=== PATIENT | female | born 1940 | race Caucasian/White ===

== ENCOUNTER 2021-09-20 05:28 | Emergency (ER) | payer OTHER ==
--- OUTSIDE RECORDS SUMMARY | 2021-09-20 05:32 | XMS REPORT | Continuity of Care Document ---
:1940 Author Organization [facility] t Address [address] [place] [address] Care Team Providers Name Role Phone DEVONTE, A Attending Clinician Unavailable Devonte GARCIA, A Attending Clinician Only, Test Attending Clinician Unavailable Doctor Unassigned, Name Attending Clinician Unavailable Nurse, General Surgery Attending Clinician Unavailable Pob, Lab Main Attending Clinician Unavailable DEVONTE, A Admitting Clinician Unavailable Devonte GARCIA, A Admitting Clinician Payers Payer Name Policy Type Policy Number Effective Date Expiration Date S ourpati [employer] MEDICARE ADV [id number] 2014 00:00:00 Problems Condition Condition Condition Status Onset Resolution Last Treating Co mments Source Name Details Category Date Date Treatment Clinician Date GERD GERD Disease Active Univers (gastroeso (gastroeso 5-18 it y of phageal phageal 00:00: [place] reflux reflux 00 Medical disease) disease) Branch No known No known Disease Unive rs active active ity of problems problems [facility] Allergies, Adverse Reactions, Alerts Allergy Allergy Status Severity Reaction(s) Onset Inactive Treating Comm ents Source Name Type Date Date Clinician NO KNOWN Drug Active Univers ALLERGIE Class ity of S [facility] Social History Social Habit Start Date Stop Date Quantity Comments Source History [facility] [place] Alcohol Std Drinks Medica l Branch History [facility] [place] Alcohol Binge Medical Bra [facility] Exposure to Not sure [facility] SARS-CoV-2 (event) Medica l Branch Sex Assigned At [facility] Branch Alcohol intake 2019-08-19 2019-08-19 [facility] 00:00:00 00:00:00 Medical Branch History SDOH 2019-07-27 2019-07-27 1 [facility] [place] Alcohol Frequency 00:00:00 00:00:00 Medical Branch Smoking Status Start Date Stop Date Source Never smoker [facility] Medical Branch Medications Ordered Filled Start Stop Current Ordering Indication Dosage Frequency Signature Comments Components Source Medication Medication Date Date Medication? Clinician (SIG) Name Name losartan 20200 Yes Take by Unive rs potassium 5-21 mouth. ity of (LOSARTAN 21:37: [place] ORAL) 13 Medical Branch potassium 2019-0 Yes Take by [facility] ers (POTASSIMIN 5-21 mouth. ity of ORAL) 21:37: [place] 13 Medical Branch acetaminoph 2019-0 Yes Take by Un paulette en (TYLENOL 5-21 mouth. ity of ARTHRITIS 21:37: [place] ORAL) 13 Medical Branch ergocalcife 2019-0 Yes Take by Un paulette rol, 5-21 mouth. ity of vitamin D2, 21:37: [place] (VITAMIN D 13 Medical ORAL) Branch B-complex Yes 1{tbl} Take 1 [facility] ers with 5-21 tablet by ity of vitamin C 21:37: mouth [place] (VITAMIN B 13 daily. Medical COMPLEX-C Branch ORAL) lactated 2019-0 Yes 500mL at 75 Univers ringers IV 5-20 mL/hr, 500 ity of infusion 20:30: mL, IV [place] 500 mL 00 Infusion, Medical CONTINUOUS Branch , Starting Sat08/19/19 at 1530, Until Discontinu ed, Routine, PACU water for 2020-0 Yes PRN, Univers irrigation 5-20 Starting ity o f irrigation 19:38: Sat [place] solution 08/19/19 at Medic al 1438, Branch Until Discontinu ed, Routine, Intra-op sodium 2020-0 Yes PRN, Univers chloride 5-20 Starting ity of (NS) 19:38: Sat [place] injection 08/19/19 at Medi luis 1438, Branch Until Discontinu ed, Routine, Intra-op neomycin-po 2020-0 Yes PRN, Univer s lymyxin-dex 5-20 Starting ity of amethasone 19:38: Sat [place] (MAXITROL) 08/19/19 at Med ical 3.5 1438, Branch mg/g-10,000 Until unit/g-0.1 Discontinu % ed, ophthalmic Routine, ointment Intra-op lidocaine-e 2020-0 Yes PRN, Univer s pinephrine 5-20 Starting ity o f (XYLOCAINE 19:37: Wed [place] W/EPINEPHRI 08/19/19 at [facility] [place]) 2 1437, Branch %-1:200,000 Until injection Discontinu ed, Routine, Intra-op Hyaluronida 2020-0 Yes PRN, Univer s se, Human 5-20 Starting ity of Recomb. 19:37: Wed [place] (HYLENEX) 08/19/19 at [facility] luis injection 1437, Branch Until Discontinu ed, Routine, Intra-op gentamicin 2020-0 Yes PRN, Univers injection 5-20 Starting ity of 19:36: Sat [place] 08/19/19 at [facility] 1436, Branch Until Discontinu ed, PEACE, Intra-op EPINEPHrine 2020-0 Yes PRN, Univer s 1:1,000 (1 5-20 Starting ity o f mg/mL) 19:36: Sat [place] (ADRENALIN) 08/19/19 at Vt dical injection 1436, Branch Until Discontinu ed, Routine, Intra-op DUOVISC 2020-0 Yes PRN, Univers (DUOVISC - Starting ity of VISCO 19:35: Sat ELASTIC) 3 08/19/19 at [facility] ical %-4 %(0.5 1435, Branch mL) 1 % Until (0.55 mL) Discontinu intraocular ed, injection Routine, Intra-op dexamethaso 2020-0 Yes PRN, Univer s ne 5-20 Starting ity of (DECADRON 19:35: Sat [place] PHOSPHATE) 08/19/19 at [facility] ical injection 1435, Branch Until Discontinu ed, Routine, Intra-op ceFAZolin 2020-0 Yes PRN, Univers (ANCEF) 5-20 Starting ity of injection 19:35: Sat [place] 08/19/19 at [facility] 1435, Branch Until Discontinu ed, PEACE, Intra-op carbachoL 2020-0 Yes PRN, Univers (MIOSTAT) 5-20 Starting ity of 0.01 % 19:35: Wed [place] intraocular 08/19/19 at Vt dical injection 1435, Branch Until Discontinu ed, Routine, Intra-op bupivacaine 2020-0 Yes PRN, Univer s (preserv 5-20 Starting ity of free) 19:34: Wed [place] (SENSORCAIN 00 20 at Vt dical E MPF) 0.75 1434, Branch % (7.5 Until mg/mL) Discontinu injection ed, Routine, Intra-op balanced 2020-0 Yes PRN, Univers salt irrig 5-20 Starting ity o f soln comb1 19:34: Wed [place] (BSS PLUS) 00 08/19/19 at [facility] ica ophthalmic 1434, Branch solution Until 500 mL bag Discontinu ed, Routine, Intra-op mydriatic 2020-0 2020- No .5mL 0.5 mL, Univ ers #5 5-20 05-20 Left Eye, ity of ophthalmic 18:15: 18:51 ONCE, 1 Bob as solution 00 :00 dose, Wed Medica l 0.5 mL 08/19/19 at Branch syringe 1315, Routine, DSU Pre-op lactated 2019-0 2020- No 500mL [facility] 20 [facility] 5-20 05-20 mL/hr, 500 it y of infusion 18:15: 18:21 mL, IV [place] 500 mL 00 :00 Infusion, Medical ONCE, 1 Branch dose, 08/19/19 at 1315, Routine, DSU Pre-op acetaminoph 2019-0 Yes Take by Un paulette en (TYLENOL 4-29 mouth. ity of ARTHRITIS 20:44: [place] ORAL) 29 Medical Branch ergocalcife 2019-0 Yes Take by Un paulette rol, 4-29 mouth. ity of vitamin D2, 20:44: [place] (VITAMIN D 29 Medical ORAL) Branch B-complex 2020-0 Yes 1{tbl} Take 1 Univ ers with 4-29 tablet by ity of vitamin C 20:44: mouth [place] (VITAMIN B 29 daily. Medical COMPLEX-C Branch ORAL) losartan 2020-0 Yes Take by [facility] rs potassium 4-29 mouth. ity of (LOSARTAN 20:44: [place] ORAL) 29 Medical Branch potassium 2020-0 Yes Take by [facility] ers (POTASSIMIN 4-29 mouth. ity of ORAL) 20:44: [place] 29 Medical Branch acetaminoph 2020-0 Yes Take by Un paulette en (TYLENOL 4-29 mouth. ity of ARTHRITIS 20:44: [place] ORAL) 29 Medical Branch ergocalcife 2020-0 Yes Take by Un paulette rol, 4-29 mouth. ity of vitamin D2, 20:44: [place] (VITAMIN D 29 Medical ORAL) Branch B-complex 2020-0 Yes 1{tbl} Take 1 Univ ers with 4-29 tablet by ity of vitamin C 20:44: mouth [place] (VITAMIN B 29 daily. Medical COMPLEX-C Branch ORAL) losartan 2019-0 Yes Take by Unive rs potassium 4-29 mouth. ity of (LOSARTAN 20:44: [place] ORAL) 29 Medical Branch potassium 2020-0 Yes Take by Univ ers (POTASSIMIN 4-29 mouth. ity of ORAL) 20:44: [place] 29 Medical Branch acetaminoph 2019-0 Yes Take by Un paulette en (TYLENOL 4-29 mouth. ity of ARTHRITIS 20:44: [place] ORAL) 29 Medical Branch ergocalcife 2019-0 Yes Take by Un paulette rol, 4-29 mouth. ity of vitamin D2, 20:44: [place] (VITAMIN D 29 Medical ORAL) Branch B-complex 2019-0 Yes 1{tbl} Take 1 Univ ers with 4-29 tablet by ity of vitamin C 20:44: mouth [place] (VITAMIN B 29 daily. Medical COMPLEX-C Branch ORAL) losartan 2019-0 Yes Take by Unive rs potassium 4-29 mouth. ity of (LOSARTAN 20:44: [place] ORAL) 29 Medical Branch potassium 2019-0 Yes Take by Univ ers (POTASSIMIN 4-29 mouth. ity of ORAL) 20:44: [place] 29 Medical Branch acetaminoph 2020-0 Yes Take by Un paulette en (TYLENOL 4-29 mouth. ity of ARTHRITIS 20:44: [place] ORAL) 29 Medical Branch ergocalcife 2020-0 Yes Take by Un paulette rol, 4-29 mouth. ity of vitamin D2, 20:44: [place] (VITAMIN D 29 Medical ORAL) Branch B-complex 2020-0 Yes 1{tbl} Take 1 Univ ers with 4-29 tablet by ity of vitamin C 20:44: mouth [place] (VITAMIN B 29 daily. Medical COMPLEX-C Branch ORAL) losartan 2020-0 Yes Take by Unive rs potassium 4-29 mouth. ity of (LOSARTAN 20:44: [place] ORAL) 29 Medical Branch potassium 2020-0 Yes Take by Univ ers (POTASSIMIN 4-29 mouth. ity of ORAL) 20:44: Medical Branch lactated 2020-0 Yes 1000mL at 75 [facility] ringers IV 07-28 mL/hr, ity of infusion 20:00: 1,000 mL, [place] 1[place]000 mL 00 IV Medical Infusion, Branch CONTINUOUS , Starting Sat07/29/19 at 1500, Until Discontinu ed, Routine, PACU FENTanyl PF 2020-0 Yes 25ug 25 mcg, Uni vers (SUBLIMAZE 07-28 Slow IV ity of (PF)) 19:48: Push, [place] injection 58 Q5MIN PRN, Medi luis 25 mcg 4 doses, Branch Starting Sat07/29/19 at 1448, Until Discontinu ed, Routine, Pain (scale 7-10), PACU ondansetron 2020-0 Yes 4mg 4 mg, Slow Univers (ZOFRAN 07-28 IV Push, ity of (PF)) 19:48: PRN, 1 [place] injection 4 58 dose, Medical mg Starting Branch Sat07/29/19 at 1448, Until Discontinu ed, Routine, Nausea and Vomiting (N/V), PACU water for 2020-0 Yes PRN, Univers irrigation 07-28 Starting ity o f irrigation 19:20: Sat [place] solution 07/29/19 at Medic al 1420, Branch Until Discontinu ed, Routine, Intra-op sodium 2020-0 Yes PRN, Univers chloride 07-28 Starting ity of (NS) 19:20: Sat [place] injection 07/29/19 at Medi luis 1420, Branch Until Discontinu ed, Routine, Intra-op neomycin-po 2020-0 Yes PRN, [facility] lymyxin-dex 07-28 Starting ity of amethasone 19:20: Sat [place] (MAXITROL) 07/29/19 at Med ical 3.5 1420, [place] mg/g-10,000 Until unit/g-0.1 Discontinu % ed, ophthalmic Routine, ointment Intra-op lidocaine-e 2020-0 Yes PRN, [facility] pinephrine 07-28 Starting ity o f (XYLOCAINE 19:20: Sat W/EPINEPHRI 00 07/29/19 at Vt dical NE) 2 1420, Branch %-1:200,000 Until injection Discontinu ed, Routine, Intra-op Hyaluronida 2020-0 Yes PRN, Univer s se, Human 07-28 Starting ity of Recomb. 19:19: Sat (HYLENEX) 00 07/29/19 at Medi luis injection 1419, Branch Until Discontinu ed, Routine, Intra-op gentamicin 2020-0 Yes PRN, Univers injection 07-28 Starting ity of 19:19: Sat07/29/19 at Medical 1419, Branch Until Discontinu ed, PEACE, Intra-op EPINEPHrine 2020-0 Yes PRN, Univer s 1:1,000 (1 07-28 Starting ity o f mg/mL) 19:19: Sat (ADRENALIN) 00 07/29/19 at Vt dical injection 1419, Branch Until Discontinu ed, Routine, Intra-op DUOVISC 2020-0 Yes PRN, Univers (DUOVISC 07-28 Starting ity of VISCO 19:18: Sat ELASTIC) 3 07/29/19 at [facility] ical %-4 %(0.5 1418, Branch mL) 1 % Until (0.55 mL) Discontinu intraocular ed, injection Routine, Intra-op dexamethaso 2020-0 Yes PRN, Univer s ne 07-28 Starting ity of (DECADRON 19:18: Sat PHOSPHATE) 07/29/19 at [facility] ical injection 1418, Branch Until Discontinu ed, Routine, Intra-op ceFAZolin 2019-0 Yes PRN, Univers (ANCEF) 07-28 Starting ity of injection 19:18: Sat07/29/19 at [facility] 1418, Branch Until Discontinu ed, PEACE, Intra-op carbachoL 2020-0 Yes PRN, Univers (MIOSTAT) 07-28 Starting ity of 0.01 % 19:18: Sat intraocular 00 07/29/19 at Vt dical injection 1418, Branch Until Discontinu ed, Routine, Intra-op bupivacaine 2020-0 Yes PRN, Univer s (preserv 07-28 Starting ity of free) 19:17: Sat (SENSORCAIN 00 07/29/19 at Vt dical E MPF) 0.75 1417, Branch % (7.5 Until mg/mL) Discontinu injection ed, Routine, Intra-op balanced 2020-0 Yes PRN, Univers salt irrig 07-28 Starting ity o f soln comb1 19:13: Wed [place] (BSS PLUS) 00 07/29/19 at [facility] ical ophthalmic 1413, Branch solution Until 500 mL bag Discontinu ed, Routine, Intra-op mydriatic 2019-0 2020- No .5mL 0.5 mL, Univ ers #5 07-28 Right Eye, ity of ophthalmic 16:15: 17:20 ONCE, 1 Bob as solution 00 :00 dose, Sat Medica l 0.5 mL 07/29/19 at Branch syringe 1115, Routine, DSU Pre-op lactated 2020-0 2020- No 1000mL at 20 [facility] rs ringers IV 07-28 mL/hr, ity of infusion 16:15: 16:44 1,000 mL, Bob as 1,000 mL 00 :00 IV Medical Infusion, Branch ONCE, 1 dose, Sat07/29/19 at 1115, Routine, DSU Pre-op losartan 2019-0 Yes Take by [facility] rs potassium 4-27 mouth. ity of (LOSARTAN 15:26: [place] ORAL) 23 Medical Branch potassium 2020-0 Yes Take by Univ ers (POTASSIMIN 4-27 mouth. ity of ORAL) 15:26: Medical Branch acetaminoph 0 Yes Take by Un paulette en (TYLENOL -27 mouth. ity of ARTHRITIS 15:26: [place] ORAL) 23 Medical Branch ergocalcife 2019-0 Yes Take by Un paulette rol, - mouth. ity of vitamin D2, 15:26: [place] (VITAMIN D 23 Medical ORAL) Branch B-complex 0 Yes 1{tbl} Take 1 Univ ers with 4-27 tablet by ity of vitamin C 15:26: mouth [place] (VITAMIN B 23 daily. Medical COMPLEX-C Branch ORAL) losartan 2020-0 Yes Take by Unive rs potassium 4-27 mouth. ity of (LOSARTAN 15:26: [place] ORAL) 23 Medical Branch potassium 2020-0 Yes Take by Univ ers (POTASSIMIN 4-27 mouth. ity of ORAL) 15:26: [place] 23 Medical Branch acetaminoph 2020-0 Yes Take by Un paulette en (TYLENOL 4-27 mouth. ity of ARTHRITIS 15:26: [place] ORAL) 23 Medical Branch ergocalcife 2020-0 Yes Take by Un paulette rol, 4-27 mouth. ity of vitamin D2, 15:26: [place] (VITAMIN D 23 Medical ORAL) Branch B-complex Yes 1{tbl} Take 1 Univ ers with 4-27 tablet by ity of vitamin C 15:26: mouth [place] (VITAMIN B 23 daily. Medical COMPLEX-C Branch ORAL) losartan Yes Take by Unive rs potassium 4-27 mouth. ity of (LOSARTAN 15:26: [place] ORAL) 23 Medical Branch potassium Yes Take by Univ ers (POTASSIMIN 4-27 mouth. ity of ORAL) 15:26: [place] 23 Medical Branch acetaminoph Yes Take by Un paulette en (TYLENOL 4-27 mouth. ity of ARTHRITIS 15:26: [place] ORAL) 23 Medical Branch ergocalcife Yes Take by Un paulette rol, 4-27 mouth. ity of vitamin D2, 15:26: [place] (VITAMIN D 23 Medical ORAL) Branch B-complex Yes 1{tbl} Take 1 Univ ers with 4-27 tablet by ity of vitamin C 15:26: mouth [place] (VITAMIN B 23 daily. Medical COMPLEX-C Branch ORAL) losartan Yes Take by Unive rs potassium 2-23 mouth. ity of (LOSARTAN 17:13: [place] ORAL) 11 Medical Branch potassium Yes Take by Univ ers (POTASSIMIN 2-23 mouth. ity of ORAL) 17:13: [place] 11 Medical Branch acetaminoph Yes Take by Un paulette en (TYLENOL 2-23 mouth. ity of ARTHRITIS 17:13: [place] ORAL) 11 Medical Branch ergocalcife Yes Take by Un paulette rol, 2-23 mouth. ity of vitamin D2, 17:13: [place] (VITAMIN D 11 Medical ORAL) Branch terbinafine Yes [id number] Apply to Univers HCl 1 % 2-23 area(s) 2 ity of cream 00:00: (two) [place] 00 times Medical daily. Branch terbinafine Yes [id number] Apply to Univers HCl 1 % 2-23 area(s) 2 ity of cream 00:00: (two) [place] 00 times Medical daily. Branch triamcinolo Yes [id number] Apply to Univers ne 2-23 area(s) 3 ity of acetonide 00:00: (three) [place] 0.1 % 00 times Medical ointment daily. Branch hydrOXYzine 2019-0 Yes [id number] 1-3 tabs Univers 10 mg 2-23 Every ity of tablet 00:00: 3-6hrs as [place] 00 needed for Medical nausea, Branch abdominal cramping, or itching. triamcinolo 2019-0 Yes [id number] Apply to Univers ne 2-23 area(s) 3 ity of acetonide 00:00: (three) [place] 0.1 % 00 times Medical ointment daily. Branch terbinafine 2019-0 Yes [id number] Apply to Univers HCl 1 % 2-23 area(s) 2 ity of cream 00:00: (two) [place] 00 times Medical daily. Branch triamcinolo 2019-0 Yes [id number] Apply to Univers ne 2-23 area(s) 3 ity of acetonide 00:00: (three) [place] 0.1 % 00 times Medical ointment daily. Branch hydrOXYzine 2019-0 Yes [id number] 1-3 tabs Univers 10 mg 2-23 Every ity of tablet 00:00: 3-6hrs as [place] 00 needed for Medical nausea, Branch abdominal cramping, or itching. hydrOXYzine 2019-0 Yes [id number] 1-3 tabs Univers 10 mg 2-23 Every ity of tablet 00:00: 3-6hrs as [place] 00 needed for Medical nausea, Branch abdominal cramping, or itching. terbinafine 2019-0 Yes [id number] Apply to Univers HCl 1 % 2-23 area(s) 2 ity of cream 00:00: (two) [place] 00 times Medical daily. Branch triamcinolo 2019-0 Yes [id number] Apply to Univers ne 2-23 area(s) 3 ity of acetonide 00:00: (three) [place] 0.1 % 00 times Medical ointment daily. Branch hydrOXYzine 2019-0 Yes [id number] 1-3 tabs Univers 10 mg 2-23 Every ity of tablet 00:00: 3-6hrs as [place] 00 needed for Medical nausea, Branch abdominal cramping, or itching. terbinafine 2019-0 Yes [id number] Apply to Univers HCl 1 % 2-23 area(s) 2 ity of cream 00:00: (two) [place] 00 times Medical daily. Branch triamcinolo 2019-0 Yes [id number] Apply to Univers ne 2-23 area(s) 3 ity of acetonide 00:00: (three) [place] 0.1 % 00 times Medical ointment daily. Branch hydrOXYzine 2019-0 Yes [id number] 1-3 tabs Univers 10 mg 2-23 Every ity of tablet 00:00: 3-6hrs as [place] 00 needed for Medical nausea, Branch abdominal cramping, or itching. terbinafine 2019-0 Yes [id number] Apply to Univers HCl 1 % 2-23 area(s) 2 ity of cream 00:00: (two) [place] 00 times Medical daily. Branch triamcinolo 2019-0 Yes [id number] Apply to Univers ne 2-23 area(s) 3 ity of acetonide 00:00: (three) [place] 0.1 % 00 times Medical ointment daily. Branch hydrOXYzine 2019-0 Yes [id number] 1-3 tabs Univers 10 mg 2-23 Every ity of tablet 00:00: 3-6hrs as [place] 00 needed for Medical nausea, Branch abdominal cramping, or itching. terbinafine 2019-0 Yes [id number] Apply to Univers HCl 1 % 2-23 area(s) 2 ity of cream 00:00: (two) [place] 00 times Medical daily. Branch triamcinolo 2019-0 Yes [id number] Apply to Univers ne 2-23 area(s) 3 ity of acetonide 00:00: (three) [place] 0.1 % 00 times Medical ointment daily. Branch hydrOXYzine 2019-0 Yes [id number] 1-3 tabs Univers 10 mg 2-23 Every ity of tablet 00:00: 3-6hrs as [place] 00 needed for Medical nausea, Branch abdominal cramping, or itching. terbinafine 2019-0 Yes [id number] Apply to Univers HCl 1 % 2-23 area(s) 2 ity of cream 00:00: (two) [place] 00 times Medical daily. Branch triamcinolo 2019-0 Yes [id number] Apply to Univers ne 2-23 area(s) 3 ity of acetonide 00:00: (three) [place] 0.1 % 00 times Medical ointment daily. Branch hydrOXYzine 2018- Yes [id number] 1-3 tabs Univers 10 mg 2-23 Every ity of tablet 00:00: 3-6hrs as [place] 00 needed for Medical nausea, Branch abdominal cramping, or itching. terbinafine 2018- Yes [id number] Apply to Univers HCl 1 % 2-23 area(s) 2 ity of cream 00:00: (two) [place] 00 times Medical daily. Branch triamcinolo 2018- Yes [id number] Apply to Univers ne 2-23 area(s) 3 ity of acetonide 00:00: (three) [place] 0.1 % 00 times Medical ointment daily. Branch hydrOXYzine Yes [id number] 1-3 tabs Univers 10 mg 2-23 Every ity of tablet 00:00: 3-6hrs as [place] 00 needed for Medical nausea, Branch abdominal cramping, or itching. Vital Signs Vital Name Observation Time Observation Value Comments Source Systolic blood 2019-08-19 20:36:00 168 mm[Hg] Univer sity [facility] Diastolic blood 2019-08-19 20:36:00 [facility]-19 20:36:00 66 /min [facility] Respiratory rate 2019-08-19 20:36:00 16 /min [facility] Oxygen saturation in 2019-08-19 20:36:00 97 /min [facility] Arterial blood by [facility] Pulse oximetry [place] Body temperature 2019-08-19 20:20:00 36.56 [facility] Body height 2019-08-17 16:00:00 172.7 cm [facility] Body weight 2019-08-17 16:00:00 77.1 kg [facility] BMI 2019-08-17 16:00:00 25.85 kg/m2 [facility] Systolic blood 2019-08-19 20:36:00 168 mm[Hg] Univer sity [facility] Diastolic blood 2019-08-19 20:36:00 71 [facility]Hg[facility] 2019-08-19 20:36:00 66 /min [facility] [place] [facility] Respiratory rate 2019-08-19 20:36:00 16 /min [facility] [place] [facility] Oxygen saturation in 2019-08-19 20:36:00 97 /min [facility] of Arterial blood by [facility] Pulse oximetry Branch Body temperature 2019-08-19 20:20:00 36.56 [facility] [place] [facility] Body height 2019-08-17 16:00:00 172.7 cm [facility] [place] [facility] Body weight 2019-08-17 16:00:00 77.1 kg [facility] [place] [facility] BMI 2019-08-17 16:00:00 25.85 kg/m2 [facility] [place] [facility] Systolic blood 2019-07-29 20:15:00 150 mm[Hg] Univer sity of pressure [place] [facility] Diastolic blood 2019-07-29 20:15:00 55 mm[Hg] Unive rsity of pressure [place] [facility] Heart rate 2019-07-29 20:15:00 54 /min [facility] [place] [facility] Oxygen saturation in 2019-07-29 20:15:00 100 /min University of Arterial blood by [facility] Pulse oximetry Branch Body temperature 2019-07-29 19:30:00 36.22 [facility] [place] [facility] Respiratory rate 2019-07-29 19:30:00 22 /min [facility] [place] [facility] Body height 2019-07-27 15:20:00 172.7 cm [facility] [place] [facility] Body weight 2019-07-27 15:20:00 77.111 kg [facility] [place] [facility] BMI 2019-07-27 15:20:00 25.85 kg/m2 [facility] [place] [facility] Systolic blood 2019-07-29 20:15:00 150 mm[Hg] Univer sity of pressure [place] [facility] Diastolic blood 2019-07-29 20:15:00 55 mm[Hg] Unive rsity of pressure [place] [facility] Heart rate 2019-07-29 20:15:00 54 /min [facility] [place] [facility] Oxygen saturation in 2019-07-29 20:15:00 100 /min University of Arterial blood by [facility] Pulse oximetry Branch Body temperature 2019-07-29 19:30:00 36.22 [facility] [place] [facility] Respiratory rate 2019-07-29 19:30:00 22 /min [facility] Body height 2019-07-27 15:20:00 172.7 cm [facility] Body weight 2019-07-27 15:20:00 77.111 kg [facility] BMI 2019-07-27 15:20:00 25.85 kg/m2 [facility] Body temperature 2019-07-28 14:35:00 36.67 [facility] Body temperature 2019-07-28 14:35:00 36.67 [facility] Procedures Procedure Date / Time Performing Source Performed Clinician PHACOEMULSIFICATION OF 2019-08-19 Rey Matos [facility] CATARACT WITH INTRAOCULAR 19:38:00 Medica l Branch LENS IMPLANT ASSIGNMENT OF BENEFITS 2019-08-18 Doctor Unassigned, [facility] 15:01:29 [facility] DAY SURGERY - ADC 2019-07-29 Doctor Unassigned, [facility] 05:01:00 [facility] NO SHOW OR MISSED APPOINTMENT 2019-06-03 Doctor Unassigned, [facility] POLICY ACKNOWLEDGEMENT 22:38:14 [facility] PATIENT FINANCIAL POLICY 2019-06-03 Doctor Unassigned, [facility] 22:37:20 [facility] NOTICE OF BILLING PRACTICES 2019-06-03 Doctor Unassigned, [facility] FOR MEDICARE PATIENTS 22:36:51 [facility] NOTICE OF PRIVACY PRACTICES 2019-06-03 Doctor Unassigned, [facility] 22:36:19 [facility] CONSENT/REFUSAL FOR DIAGNOSIS 2019-06-03 Doctor Unassigned, [facility] AND TREATMENT 22:35:34 [facility] ASSIGNMENT OF BENEFITS 2019-06-03 Doctor Unassigned, [facility] 22:35:09 [facility] CONSENT/REFUSAL FOR DIAGNOSIS 2019-06-03 Doctor Unassigned, [facility] AND TREATMENT 22:34:42 [facility] ASSIGNMENT OF BENEFITS 2019-06-03 Doctor Unassigned, [facility] 22:34:02 [facility] PHYSICIAN ORDERS 2019-06-03 Doctor Unassigned, [facility] 06:01:00 [facility] Encounters Start End Encounter Admission Attending Care Care Encounter Source Date/Time Date/Time Type Type Clinicians Facility Department ID 2021-01-26 Outpatient DEVONTE [facility] [id number] Univers 21:11:38 RE[facility] itdougie [facility] 2021-01-26 Outpatient [facility] [id number] Univers 12:34:13 [facility] 2020-06-04 Outpatient [facility] [id number] Univers 11:30:00 11:30:00 ity [facility] 2020-05-07 2020-05-07 Outpatient [facility] [id number] Univers 11:40:00 11:40:00 ity [facility] 2019-08-19 2019-08-19 [facility] [id number] 12:56:00 15:58:00 Encounter Rey Blevins [place] 350.1.13.10 [place] 4.2.7.2.686 Surgical [phone] [place] [address] 2019-08-19 2019-08-19 [facility] [id number] Univers 12:56:00 15:58:00 Encounter Rey Blevins [place] 350.1.13.10 [place] [phone] Med ical [address] 2019-08-18 2019-08-18 Laboratory Only, [facility] 1.2.840.114 [id number] 09:17:57 09:32:57 Only Test [place] 350.1.13.10 [place] 4.2.7.2.686 Professio [id number] [address] 2019-08-18 2019-08-18 Laboratory Only, [facility] Test [facility] 1.2.840. [id number] Univers 09:17:57 09:32:57 Only Rey Matos Jami 350.1.13.1 0 [place] [phone] Vt dical [address] 2019-08-18 2019-08-18 Outpatient R [facility] [id number] Univers 09:30:00 09:30:00 [id number] [facility] 2019-08-18 2019-08-18 Outpatient R [facility] [id number] Univers 09:30:00 09:30:00 REY itdougie [facility] 2019-08-18 2019-08-18 Orders Doctor BELL 1.2.840.114 [id number] 00:00:00 00:00:00 Only Unassigned, TAIWO 350.1.13.10 [facility] 4.2.7.2.686 [id number] 009 2019-08-18 2019-08-18 Orders Doctor RAY 1.2.840.114 [id number] Univers 00:00:00 00:00:00 Only Unassigned, TAIWO 350.1.13.10 ity of [facility] 4.2.7.2.686 Bob as [phone] [address] 2019-07-29 2019-07-29 [facility] [id number] 11:12:00 15:30:00 Encounter Rey Farrell 350.1.13.10 [place] 4.2.7.2.686 Surgical [id number] [place] [address] 2019-07-29 2019-07-29 [facility] [id number] [facility] 11:12:00 15:30:00 Encounter Rey Blevins Jami 350.1.13.10 [place] [phone] [address] 2019-07-29 2019-07-29 Orders Doctor BELL 1.2.840.114 [id number] 00:00:00 00:00:00 Only Unassigned, TAIWO 350.1.13.10 [facility] 4.2.7.2.[id number] [facility] 2019-07-29 2019-07-29 Orders Doctor BELL 1.2.840.114 [id number] Univers 00:00:00 00:00:00 Only Unassigned, TAIWO 350.1.13.10 [facility]y of [facility] 4.2.7.2.686 Bob as [phone] [address] 2019-07-28 2019-07-28 Outpatient R [facility] [id number] Univers 09:30:00 09:30:00 [id number] ity [facility] 2019-07-28 2019-07-28 Outpatient R [facility] [id number] Univers 09:30:00 09:30:00 REY ity [facility] 2019-07-28 2019-07-28 Nurse Nurse, [facility] 1.2.840.114 [id number] 09:08:07 09:22:57 Visit General Jami 350.1.13.10 Surgery [place] 4.2.7.2.686 Professio [phone] [address] 2019-07-28 2019-07-28 Nurse Nurse, [facility] General Surgery [facility] 1.2.840.114 [id number] [facility] 09:08:07 09:22:57 Visit Rey Matos 350.1.13.1 0 [place] [phone] Vt dical nal [address] [facility] 2019-07-28 2019-07-28 Telephone RAY Matos 1.2.840.114 [id number] 00:00:00 00:00:00 Rey MARAVILLA 350.1.13.10 HOSPITAL 4.2.7.2.686 [id number] [facility] 2019-07-28 2019-07-28 Telephone RAY Matos 1.2.840.114 [id number] [facility] 00:00:00 00:00:00 Rey MARAVILLA 350.1.13.10 ity of HOSPITAL 4.2.7.2.686 Bob as [phone] [address] 2019-06-03 2019-06-03 [employer] Supervisor Todd, [facility] Lab Main [facility] 1.2.8 [id number] Univers 16:40:09 16:55:09 Visit Rey Matos 350.1.13.1 0 [place] [phone] Vt dical nal 353 [facility] 2019-06-03 2019-06-03 Outpatient [facility] [id number] Univers 16:30:00 16:30:00 ity [facility] 2019-06-03 2019-06-03 Outpatient Valerie MATOS [facility] [id number] Univers 16:30:00 16:30:00 REY muniz [facility] Results This patient has no known results.
[2021-09-20] MEDS ORDERED: IBUPROFEN 200 MG TAB PO ONE (06:31)
[2021-09-20] MEDS ORDERED: IBUPROFEN 400 MG TAB ONE (06:31)
[2021-09-20 06:33] LABS: Absolute Lymphocytes (CBC) 1.6 K/uL (0.7-4.9); Hematocrit 39.8 % (36.0-45.0); MPV 7.6 fL (7.6-11.3); RBC Red Blood Cell Count 4.54 M/uL (3.86-4.86)
[2021-09-20 07:39] LABS: Albumin 3.2 g/dL (3.4-5.0); Bilirubin Total 0.7 mg/dL (0.2-1.0); Potassium 3.8 mmol/L (3.5-5.1); Protein, Total 6.9 g/dL (6.4-8.2)
[2021-09-20] MEDS ORDERED: NA CHLORIDE 0.9% 500 ML ONE (08:15)
--- NOTE | 2021-09-20 08:41 | EDPHYS ---
Physician Documentation [facility] Name: Mary Ellen Flores Age: 81 yrs Sex: Female : 1940 Arrival Date: 09/20/2021 Time: 05:30 Bed 17 Private MD: Ayad Merino R ED Physician Garrett Callahan HPI: 09/20 06:44 This 81 yrs old Female presents to ER via Ambulatory with complaints of Sore Throat, kdr Diarrhea, Fever. 06:45 Patient complains of a sore throat with nausea, diarrhea for the last 3 days. She kdr states that she went to [place] and was interacting with people at that time. The following day on Saturday, she began to feel ill and is progressively gotten worse since then. Onset: The symptoms/episode began/occurred gradually, Since Saturday. Severity of symptoms: At their worst the symptoms were mild just prior to arrival, in the emergency department the symptoms are unchanged. The patient has not experienced similar symptoms in the past. The patient has not recently seen a physician. Historical: - Allergies: 05:45 No Known Allergies; as6 - PMHx: 05:45 Hypertensive disorder; as6 - PSHx: 05:45 None; as6 - Immunization history:: Client reports receiving the 1st dose of the Covid vaccine, moderna. - Social history:: Smoking status: Patient denies any tobacco usage or history of. ROS: 06:45 Constitutional: Negative for weight loss, she has had subjective fever and chills Eyes: kdr Negative for injury, pain, redness, and discharge, Neck: Negative for injury, pain, and swelling, Cardiovascular: Negative for chest pain, palpitations, and edema, Respiratory: Negative for shortness of breath, cough, wheezing, and pleuritic chest pain, Back: Negative for injury and pain, : Negative for injury, bleeding, discharge, and swelling, MS/Extremity: Negative for injury and deformity, Skin: Negative for injury, rash, and discoloration, Neuro: Negative for headache, weakness, numbness, tingling, and seizure activity. Psych: Negative for depression, anxiety, suicide ideation, homicidal ideation, and hallucinations, Allergy/Immunology: Negative for hives, rash, and allergies, Endocrine: Negative for neck swelling, polydipsia, polyuria, polyphagia, and marked weight changes, Hematologic/Lymphatic: Negative for swollen nodes, abnormal bleeding, and unusual bruising. 06:45 ENT: Positive for sore throat, Negative for ear pain, rhinorrhea, sinus congestion. 06:45 Abdomen/GI: Positive for nausea, diarrhea, Negative for vomiting. Exam: 06:45 Constitutional: This is a well developed, well nourished patient who is awake, alert, kdr and in no acute distress. Head/Face: Normocephalic, atraumatic. Eyes: Pupils equal round and reactive to light, extra-ocular motions intact. Lids and lashes normal. Conjunctiva and sclera are non-icteric and not injected. Cornea within normal limits. Periorbital areas with no swelling, redness, or edema. Neck: Trachea midline, no thyromegaly or masses palpated, and no cervical lymphadenopathy. Supple, full range of motion without nuchal rigidity, or vertebral point tenderness. No Meningismus. Chest/axilla: Normal chest wall appearance and motion. Nontender with no deformity. No lesions are appreciated. 06:45 ENT: Mouth: Lips: normal, Oral mucosa: normal, drooling, is not appreciated, Posterior pharynx: Uvula: normal, midline, swelling, that is mild, erythema, that is mild, exudate, is not appreciated, peritonsillar mass, is not appreciated, pooling of secretions, is not appreciated. Vital Signs: 05:44 BP 157 / 76; Pulse 80; Resp 16 S; Temp 97.9(O); Pulse Ox 100% on R/A; Weight 77.11 kg as6 (R); Height 5 ft. 8 in. (172.72 cm) (R); Pain 0/10; 07:15 BP 142 / 77; Pulse 78; Resp 16; Pulse Ox 100% ; Pain 0/10; jh6 09:49 BP 143 / 74; Pulse 74; Resp 18; Temp 98.0(O); Pulse Ox 100% ; Pain 0/10; jh6 05:44 Body Mass Index 25.85 (77.11 kg, 172.72 cm) as6 MDM: 06:45 Data reviewed: vital signs, nurses notes, lab test result(s), radiologic studies. kdr Counseling: I had a detailed discussion with the patient and/or guardian regarding: the historical points, exam findings, and any diagnostic results supporting the discharge/admit diagnosis, lab results, radiology results. 07:25 Patient medically screened. rn 08:40 Differential Diagnosis flu, covid, viral syndrome. Response to treatment: the patient's rn symptoms have mildly improved after treatment, and as a result, I will discharge patient. Special discussion: I discussed with the patient/guardian in detail that at this point there is no indication for admission to the hospital. It is understood, however, that if the symptoms persist or worsen the patient needs to return immediately for re-evaluation. Based on the history and exam findings, there is no indication for further emergent testing or inpatient evaluation. I discussed with the patient/guardian the need to see the primary care provider for further evaluation of the symptoms. 09/20 05:59 Order name: CBC with Diff; Complete Time: 07:42 bb 09/20 05:59 Order name: CMP; Complete Time: 07:42 bb 09/20 05:59 Order name: Lipase; Complete Time: 07:42 bb 09/20 06:06 Order name: Strep; Complete Time: 07:42 bb 09/20 06:35 Order name: SARS-COV-2 RT PCR; Complete Time: 07:42 EDMS 09/20 05:59 Order name: IV Saline Lock; Complete Time: 06:23 bb 09/20 05:59 Order name: Labs collected and sent; Complete Time: 06:23 bb 09/20 06:54 Order name: Labs - recollect needed: chemistry needed; Complete Time: 07:14 mw2 09/20 06:57 Order name: Throat Culture EDMS Administered Medications: 06:30 Drug: Ibuprofen 600 mg Route: PO; ke1 08:12 Drug: NS 0.9% 500 ml Route: IV; Rate: bolus; Site: left antecubital; jh6 Disposition Summary: 09/20/21 08:41 Discharge Ordered Location: Home rn Problem: new rn Symptoms: have improved rn Condition: Stable rn Diagnosis - SARS-associated coronavirus as the cause of diseases classified elsewhere rn Followup: rn - With: Ayad Merino MD - When: 2 - 3 days - Reason: Recheck today's complaints, Re-evaluation by your physician Discharge Instructions: - Discharge Summary Sheet rn - COVID-19 rn - 10 Things You Can Do to Manage Your COVID-19 Symptoms at Home - CDC rn - Viral Illness, Adult rn Forms: - Medication Reconciliation Form rn - Thank You Letter rn - Antibiotic external grinder tool - Prescription Opioid Use rn Prescriptions: - PAXLOVID - take 1 tablet by ORAL route 2 times per day for 5 days; 10 tablet; Refills: 0, rn Product Selection Permitted Signatures: Dispatcher [employer] EDMS Maximilian Vizcarra MD MD kdr Ballard, Brenda, RN RN Garrett Hutchinson MD MD rn [place], MyKena 2 Raghav Barone RN RN as6 Jen Freitas RN RN jh6 Comfort Cobb, RN RN ke1 Corrections: (The following items were deleted from the chart) 06:35 06:00 COVID-19/FLU A+B+MOL.LAB.BRZ ordered. EDNM EDNM
--- NOTE | 2021-09-20 08:41 | ER ---
Nurse's Notes [facility] Name: Mary Ellen Flores Age: 81 yrs Sex: Female : 1940 Arrival Date: 09/20/2021 Time: 05:30 Bed 17 Private MD: Ayad Merino R Diagnosis: SARS-associated coronavirus as the cause of diseases classified elsewhere Presentation: 09/20 05:44 Chief complaint: Patient states: pt c/o sore throat, n/v/d x3 days. Coronavirus screen: as6 Client presents with at least one sign or symptom that may indicate coronavirus-19. Standard/surgical mask placed on the client. Provider contacted for isolation considerations. Ebola Screen: No symptoms or risks identified at this time. Initial Sepsis Screen: Does the patient meet any 2 criteria? No. Patient's initial sepsis screen is negative. Does the patient have a suspected source of infection? No. Patient's initial sepsis screen is negative. Risk Assessment: Do you want to hurt yourself or someone else? Patient reports no desire to harm self or others. Onset of symptoms was September 17, 2021. 05:44 Method Of Arrival: Ambulatory as6 05:44 Acuity: ASHLEY 3 as6 Triage Assessment: 06:28 General: Appears uncomfortable, Behavior is appropriate for age. EENT: Neuro: Level of ke1 Consciousness is awake, alert, Oriented to person, place, time, situation. Respiratory: Airway is patent Trachea midline Respiratory effort is even, unlabored, Respiratory pattern is regular, symmetrical. Historical: - Allergies: 05:45 No Known Allergies; as6 - PMHx: 05:45 Hypertensive disorder; as6 - PSHx: 05:45 None; as6 - Immunization history:: Client reports receiving the 1st dose of the Covid vaccine, moderna. - Social history:: Smoking status: Patient denies any tobacco usage or history of. Screenin: Abuse screen: Denies threats or abuse. Nutritional screening: No deficits noted. ke1 Tuberculosis screening: No symptoms or risk factors identified. Fall Risk No fall in past 12 months (0 pts). Secondary diagnosis (15 points) IV access (20 points). Ambulatory Aid- None/Bed Rest/Nurse Assist (0 pts). Gait- Normal/Bed Rest/Wheelchair (0 pts) Mental Status- Oriented to own ability (0 pts). Total Vences Fall Scale indicates No Risk (0-24 pts). Assessment: 06:21 Pain: Complains of pain in sore throat. Respiratory: Airway is patent Respiratory ke1 effort is unlabored, Breath sounds are clear Breath sounds are diminished bilaterally. EENT: Throat is pink. 07:15 General: Appears in no apparent distress. Behavior is calm, cooperative. jh6 07:15 Pain: Complains of pain in abdomen. Respiratory: No deficits noted. GI: Abd is soft and jh6 non tender X 4 quads. Reports lower abdominal pain, upper abdominal pain, cramping, diarrhea. EENT: Throat is clear is pink. 08:40 Reassessment: No changes from previously documented assessment. Patient and/or family jh6 updated on plan of care and expected duration. Pain level reassessed. Patient is alert, oriented x 3, equal unlabored respirations, skin warm/dry/pink. 09:48 Reassessment: No changes from previously documented assessment. Patient and/or family jh6 updated on plan of care and expected duration. Pain level reassessed. Patient states feeling better. Vital Signs: 05:44 BP 157 / 76; Pulse 80; Resp 16 S; Temp 97.9(O); Pulse Ox 100% on R/A; Weight 77.11 kg as6 (R); Height 5 ft. 8 in. (172.72 cm) (R); Pain 0/10; 07:15 BP 142 / 77; Pulse 78; Resp 16; Pulse Ox 100% ; Pain 0/10; jh6 09:49 BP 143 / 74; Pulse 74; Resp 18; Temp 98.0(O); Pulse Ox 100% ; Pain 0/10; jh6 05:44 Body Mass Index 25.85 (77.11 kg, 172.72 cm) as6 ED Course: 05:30 Patient arrived in ED. as 05:30 Ayad Merino MD is Private Physician. as 05:34 Comfort Cobb, RJ is Primary Nurse. ke1 05:45 Triage completed. as6 05:46 Arm band placed on. as6 06:14 Maximilian Vizcarra MD is Attending Physician. kdr 06:23 Inserted saline lock: 22 gauge in left antecubital area, using aseptic technique. ke1 06:29 Bed in low position. Call light in reach. Side rails up X 1. Side rails up X2. ke1 07:25 Attending Physician role handed off by Maximilian Vizcarra MD rn 07:25 Garrett Callahan MD is Attending Physician. rn 08:40 Ayad Merino MD is Referral Physician. rn 09:49 No provider procedures requiring assistance completed. 6 09:50 IV discontinued, intact, bleeding controlled, No redness/swelling at site. [facility] Administered Medications: 06:30 Drug: Ibuprofen 600 mg Route: PO; ke1 08:12 Drug: NS 0.9% 500 ml Route: IV; Rate: bolus; Site: left antecubital; [facility] Outcome: 08:41 Discharge ordered by . rn 09:49 Discharged to home ambulatory. 6 09:49 Condition: good 09:49 Discharge instructions given to patient, family, Instructed on discharge instructions, follow up and referral plans. 09:50 Patient left the ED. [facility] Signatures: Maximilian Vizcarra MD MD kdr Martinez, Amelia as Garrett Callahan MD MD rn Slawson, Ashby, RN RN as6 Jen Freitas RN RN 6 Comfort Cobb RN RN ke1 Corrections: (The following items were deleted from the chart) 06:28 06:21 Pain: Denies pain. 1 ke1
[2021-09-20 09:55] VITALS: O2SAT 100
[2021-09-20 09:59] VITALS: BP 143/74; TEMP 98
== END 2021-09-20 09:50 | disposition home or self-care (01) ==
LOC: ER 05:28
DX: U07.1 COVID-19 (principal); I10 Essential (primary) hypertension
CPT/HCPCS: 87070; 85025; 36415; 87081; 83690; 80053; 99283; U0003; J7040